=== PATIENT | female | born 1940 | race Caucasian/White ===

== ENCOUNTER 2020-09-26 22:08 | Emergency (ER) | payer MEDICARE, BC ==
[2020-09-26] MEDS ORDERED: ARICEPT10 M1 PO (22:35)
[2020-09-26] MEDS ORDERED: NAMENDA10 MG PO (22:35)
[2020-09-26] MEDS ORDERED: ZESTRIL2.5 M1 PO (22:36)
[2020-09-26] MEDS ORDERED: SINGULAIR PO (22:36)
[2020-09-26] MEDS ORDERED: SCOPOLAMINE1 EACH TD (22:37)
[2020-09-26] MEDS ORDERED: SYNTHROID0.05 MG PO (22:43)
[2020-09-27 02:09] VITALS: BP 154/76
== END 2020-09-27 02:03 | disposition home or self-care (01) ==
LOC: ED 22:08
DX: S01.81XA Laceration without foreign body of other part of head, initial encounter (principal); S40.012A Contusion of left shoulder, initial encounter; F03.90 Unspecified dementia, unspecified severity, without behavioral disturbance, psychotic disturbance, mood disturbance, and anxiety; M25.532 Pain in left wrist; W18.39XA Other fall on same level, initial encounter; Y92.009 Unspecified place in unspecified non-institutional (private) residence as the place of occurrence of the external cause
CPT/HCPCS: 15975; A4570

== ENCOUNTER 2021-03-18 21:28 | Emergency (ER) | payer MEDICARE, BC ==
[~2021-03-18] VITALS: Ht 167.6 cm; Wt 45.8 kg
[~2021-03-18 21:28] MED LIST: ARICEPT10 M1 PO; NAMENDA10 MG PO; SCOPOLAMINE1 EACH TD; SINGULAIR PO; SYNTHROID0.05 MG PO; ZESTRIL2.5 M1 PO
[2021-03-18] MEDS ORDERED: TOPCARE ASPIRIN81 M1 (22:08)
[2021-03-18 22:53] VITALS: BP 123/57
== END 2021-03-18 22:53 | disposition home or self-care (01) ==
LOC: ED 21:28
DX: S01.01XA Laceration without foreign body of scalp, initial encounter (principal); I10 Essential (primary) hypertension; E03.9 Hypothyroidism, unspecified; Z79.890 Hormone replacement therapy; Z79.899 Other long term (current) drug therapy; W01.198A Fall on same level from slipping, tripping and stumbling with subsequent striking against other object, initial encounter; Y92.009 Unspecified place in unspecified non-institutional (private) residence as the place of occurrence of the external cause

== ENCOUNTER 2021-09-05 20:31 | Emergency (ER) | payer MEDICARE, BC ==
[~2021-09-05] VITALS: Ht 167.6 cm; Wt 40.8 kg
[~2021-09-05 20:31] MED LIST changes: +TOPCARE ASPIRIN81 M1
[2021-09-05 21:47] LABS: BASO # 0.02 K/mm3 (0.02-0.10); EOS # 0.06 K/mm3 (0.04-0.40); EOS % 0.7 % (1.0-5.0); HEMATOCRIT 37.6 % (37.0-47.0); HEMOGLOBIN 12.4 g/dL (12.5-16.0); LYMPH# 1.26 K/mm3 (1.50-4.00); MEAN CELL VOLUME 101 fl (78-100); MEAN CORPUSCULAR HEMOGLOBIN 33 pg (27-31); MEAN CORPUSCULAR HGB CONC 33 g/dL (33-37); MEAN PLATELET VOLUME 9.5 fl (7.4-10.4); MONO # 1.22 K/mm3 (0.20-0.80); NEU # 6.12 K/mm3 (1.40-6.50); PLATELET COUNT 262 K/mm3 (130-400); RED BLOOD COUNT 3.72 M/mm3 (4.10-5.30); RED CELL DISTRIBUTION WIDTH 14.6 % (11.5-14.5); WHITE BLOOD COUNT 8.7 K/mm3 (4.8-10.8)
[2021-09-05 21:57] LABS: ALBUMIN 3.8 g/dL (3.4-4.8)
[2021-09-05 21:58] LABS: POTASSIUM 4.3 mmol/L (3.5-5.1)
[2021-09-05 21:59] LABS: CALCIUM 9.1 mg/dL (8.3-10.5)
[2021-09-05 22:00] LABS: TOTAL PROTEIN 6.4 g/dL (6.2-8.1)
[2021-09-05 22:02] LABS: TOTAL BILIRUBIN 0.5 mg/dL (0.2-1.2)
[2021-09-05 22:05] LABS: URINE APPEARANCE HAZY; URINE BILIRUBIN NEGATIVE (NEGATIVE); URINE BLOOD 50 ery/uL (NEGATIVE); URINE COLOR YELLOW; URINE GLUCOSE NEGATIVE (NEGATIVE); URINE KETONE NEGATIVE (NEGATIVE); URINE LEUKOCYTE ESTERASE TRACE (NEGATIVE); URINE MUCUS PRESENT (NOT PRESENT); URINE NITRATE POSITIVE (NEGATIVE); URINE PROTEIN(semi-quant) TRACE (NEGATIVE); URINE UROBILINOGEN NORMAL (NORMAL)
[2021-09-05] MEDS ORDERED: MONUROL 3 GM3 G/PKT PO (22:24)
[2021-09-05 23:09] VITALS: BP 142/81
== END 2021-09-05 23:09 | disposition home or self-care (01) ==
LOC: ED 20:31
PROVIDERS: Family Medicine
DX: F03.90 Unspecified dementia, unspecified severity, without behavioral disturbance, psychotic disturbance, mood disturbance, and anxiety (principal); N39.0 Urinary tract infection, site not specified; Z88.0 Allergy status to penicillin; Z88.2 Allergy status to sulfonamides; Z88.1 Allergy status to other antibiotic agents; Z20.822 Contact with and (suspected) exposure to COVID-19
CPT/HCPCS: J1580

== ENCOUNTER → 2021-09-24 | Outpatient (CLI) | payer MEDICARE, BC ==
[~2021-09-24] MED LIST changes: +MONUROL 3 GM3 G/PKT PO
== END ==
LOC: RAD 13:00
DX: K21.9 Gastro-esophageal reflux disease without esophagitis (principal)

== ENCOUNTER → 2021-11-02 | Outpatient (CLI) | payer MEDICARE, BC | LOC: VAS 13:56 → RAD 14:00 | DX: M48.56XA Collapsed vertebra, not elsewhere classified, lumbar region, initial encounter for fracture (principal); I70.209 Unspecified atherosclerosis of native arteries of extremities, unspecified extremity; M41.86 Other forms of scoliosis, lumbar region; M51.36 Other intervertebral disc degeneration, lumbar region; Z96.7 Presence of other bone and tendon implants ==

== ENCOUNTER → 2023-03-02 | Outpatient (CLI) | payer MEDICARE, BC ==
[2023-03-02 15:25] LABS: URINE APPEARANCE CLOUDY; URINE BILIRUBIN NEGATIVE (NEGATIVE); URINE BLOOD TRACE (NEGATIVE); URINE COLOR YELLOW; URINE GLUCOSE NEGATIVE (NEGATIVE); URINE KETONE NEGATIVE (NEGATIVE); URINE LEUKOCYTE ESTERASE 1+ (NEGATIVE); URINE NITRATE POSITIVE (NEGATIVE); URINE PROTEIN(semi-quant) NEGATIVE (NEGATIVE); URINE UROBILINOGEN NORMAL (NORMAL)
== END ==
LOC: LAB 15:03
DX: N30.00 Acute cystitis without hematuria (principal)

== ENCOUNTER → 2023-03-19 | Outpatient (CLI) | payer MEDICARE, BC ==
[2023-03-19 10:48] LABS: URINE COLOR YELLOW
[2023-03-19 10:49] LABS: URINE APPEARANCE CLOUDY; URINE BILIRUBIN NEGATIVE (NEGATIVE); URINE BLOOD 50 ery/uL (NEGATIVE); URINE GLUCOSE NEGATIVE (NEGATIVE); URINE KETONE NEGATIVE (NEGATIVE); URINE LEUKOCYTE ESTERASE TRACE (NEGATIVE); URINE NITRATE POSITIVE (NEGATIVE); URINE PROTEIN(semi-quant) TRACE (NEGATIVE); URINE UROBILINOGEN NORMAL (NORMAL)
== END ==
LOC: LAB 10:44
DX: N30.00 Acute cystitis without hematuria (principal)